=== PATIENT | female | born 2000 | race Caucasian/White ===

== ENCOUNTER → 2020-03-25 15:25 | Observation (INO) ==
[2020-03-25 15:09] LABS: Amorphous Sediment,Urine Few per hpf (None-Few); Bilirubin,Urine Negative (Negative); Blood,Urine Negative (Negative); Clarity,Urine Turbid (Clear); Color,Urine Light-Yellow (Yellow); Glucose,Urine (UA) Normal (Normal); Ketones,Urine Negative (Negative); Leukocyte Esterase,Urine Negative (Negative); Mucus,Urine Few per lpf (None-Few); Nitrite,Urine Negative (Negative); PH,Urine 7.5 pH Units (5.0-8.0); Protein,Urine Negative (Neg-Trace); Specific Gravity,Urine 1.017 (1.010-1.025); Squamous Epithelial Cell,Urine Few per hpf (None-Few); Urobilinogen,Urine Normal (Normal); WBC,Urine 0-3 per hpf (0-3)
== END | disposition home or self-care (01) ==
LOC: 1NENULAB
PROVIDERS: ADMIT Obstetrics & Gynecology; ATTEND Obstetrics & Gynecology

== ENCOUNTER 2020-05-03 05:57 | Inpatient (IN) ==
[2020-05-03] MEDS ORDERED: *HR* FentaNYL (PF) 100 MCG/2 ML VIAL IVP PRN (06:25)
[2020-05-03] MEDS ORDERED: Famotidine 20 MG/2 ML VIAL IVP PRN (06:25)
[2020-05-03] MEDS ORDERED: Ondansetron 4 MG/2 ML VIAL IVP PRN (06:25)
[2020-05-03] MEDS ORDERED: Naloxone 0.4 MG/ML INJ IVP PRN (06:25)
[2020-05-03] MEDS ORDERED: Metoclopramide 10 MG/2 ML VIAL IVP PRN (06:25)
[2020-05-03] MEDS ORDERED: miSOPROStoL 25 MCG TABLET PO SCH (06:30)
[2020-05-03 07:01] LABS: Basophils % 0.2 %; Eosinophils # 0.1 K/mcL (0.0-0.6); Eosinophils % 0.6 %; Hematocrit 38.6 % (35.3-44.9); Hemoglobin 12.4 g/dL (11.5-15.4); Lymphocytes % 11.6 %; Mean Corpuscular HGB Conc 32.1 g/dL (31.6-35.5); Mean Corpuscular Hemoglobin 28.2 pg (28.0-33.3); Mean Corpuscular Volume 87.7 fL (83.0-100.0); Mean Platelet Volume 10.7 fL (9.4-12.4); Monocytes # 0.8 K/mcL (0.0-1.3); Monocytes % 9.2 %; Neutrophils # 6.4 K/mcL (1.6-8.9); Platelet Count 192 K/mcL (140-400); Red Cell Distribution Width 15.4 % (11.5-14.5); Segmented Neutrophils % 77.4 %; White Blood Count 8.3 K/mcL (4.3-11.1)
[2020-05-03 08:58] LABS: Amphetamine Screen,Urine Negative ng/mL (Cutoff=1000); Barbiturate Screen,Urine Negative ng/mL (Cutoff=200); Benzodiazepines Screen,Urine Negative ng/mL (Cutoff=200); Cannabinoid Screen,Urine Negative ng/mL (Cutoff = 50); Cocaine Screen,Urine Negative ng/mL (Cutoff= 300); Opiate Screen,Urine Negative ng/mL (Cutoff=300); Phencyclidine Screen,Urine Negative ng/mL (Cutoff=25)
[2020-05-03] MEDS ORDERED: EPHEDrine 50 MG/ML VIAL IVP PRN (10:12)
[2020-05-03] MEDS ORDERED: *HR* FentaNYL (PF) 100 MCG/2 ML VIAL EP ONE (10:12)
[2020-05-03] MEDS ORDERED: Bupivacaine-MPF 0.25% 10 ML VIAL EP ONE (10:12)
[2020-05-03] MEDS ORDERED: Oxytocin 20 units/ LR 1000 mL 20 UNIT/1,000 ML BAG IVC SCH (12:30)
[2020-05-03] MEDS ORDERED: Oxytocin 20 units/ LR 1000 mL 20 UNIT/1,000 ML BAG IVC ONE (12:35)
[2020-05-03] MEDS: Ringers Solution, Lactated 1,000 ML IVC SCH ×2 (12:38→15:36)
[2020-05-03] MEDS: Epidural Premix (fent/bupiv) 110 ML EP SCH ×2 (14:32→21:35)
[2020-05-04] MEDS ORDERED: Ibuprofen 600 MG TABLET PO PRN (05:52)
[2020-05-04] MEDS ORDERED: Oxytocin 20 units/ LR 1000 mL 20 UNIT/1,000 ML BAG IVC SCH (05:52)
[2020-05-04] MEDS ORDERED: Acetaminophen 325 MG TABLET PO PRN (05:52)
[2020-05-04] MEDS ORDERED: Benzocaine/Menthol 56 GM AEROSOL SPRAY TP PRN (05:52)
[2020-05-04] MEDS ORDERED: Oxytocin 20 units/ LR 1000 mL 20 UNIT/1,000 ML BAG IVC ONE (05:52)
[2020-05-04] MEDS: Prenatal Vit/FA 1 EACH TABLET PO SCH (07:47)
[2020-05-05] MEDS: Prenatal Vit/FA 1 EACH TABLET PO SCH (08:12)
[2020-05-05 08:15] VITALS: BP 121/80
== END 2020-05-05 11:27 | disposition home or self-care (01) | DRG 560 ==
LOC: 1NENULAB 05:57 → 1NENUOBS 05-04 05:53
PROVIDERS: ADMIT Obstetrics & Gynecology; ATTEND Obstetrics & Gynecology